=== PATIENT | male | born 1970 | race Hispanic/Latino ===

== ENCOUNTER 2021-08-08 18:19 | Emergency (ER) | payer MEDICAID ==
--- NOTE | 2021-08-08 18:45 | Emergency Department Report ---
ED General Adult HPI - General Stated complaint: LVAD ALARMING Time Seen by Provider: 08/08/21 18:41 Source: patient Mode of arrival: Ambulatory Limitations: No Limitations - History of Present Illness Initial comments: This patient presents to the emergency room stating that his LVAD has been beeping. Prior to my evaluation of the patient the issue was fixed by the nursing staff. The patient has an appointment with his cardiology to have further evaluation of of breath tomorrow. Patient states that he has a 1 PM appointment. He denies chest pain nausea vomiting or diaphoresis. -: Sudden Improves with: none Worsens with: none Treatments Prior to Arrival: none - Related Data Allergies Allergy/AdvReac Type Severity Reaction Status Date / Time No Known Allergies Allergy Verified 08/08/21 18:35 ED Review of Systems ROS: Stated complaint: LVAD ALARMING Other details as noted in HPI Comment: All other systems reviewed and negative Constitutional: no symptoms reported Eyes: denies: eye pain, eye discharge, vision change ENT: denies: ear pain, throat pain Respiratory: no symptoms reported. denies: cough, shortness of breath, wheezing Cardiovascular: denies: chest pain, palpitations Endocrine: no symptoms reported Gastrointestinal: denies: abdominal pain, nausea, vomiting Genitourinary: denies: urgency, dysuria Musculoskeletal: denies: back pain Skin: denies: rash, lesions Neurological: denies: headache, weakness Psychiatric: denies: anxiety, depression Hematological/Lymphatic: denies: easy bleeding ED Physical Exam - General General appearance: alert, in no apparent distress, obese (Morbid) - Head Head exam: Present: atraumatic, normocephalic - Eye Eye exam: Present: normal appearance, PERRL, EOMI - ENT ENT exam: Present: mucous membranes moist - Neck Neck exam: Present: normal inspection. Absent: tenderness - Respiratory Respiratory exam: Present: normal lung sounds bilaterally. Absent: respiratory distress, wheezes, rales, rhonchi - Cardiovascular Cardiovascular Exam: Present: regular rate - GI/Abdominal GI/Abdominal exam: Present: soft, normal bowel sounds - Rectal Rectal exam: Present: deferred - Back Exam Back exam: Present: normal inspection, full ROM. Absent: tenderness - Neurological Exam Neurological exam: Present: alert, oriented X3 - Psychiatric Psychiatric exam: Present: normal affect ED Course Vital Signs 08/08/21 18:36 Temperature 97.8 F Pulse Rate 66 Respiratory 16 Rate Blood Pressure 116/93 O2 Sat by Pulse 96 Oximetry ED Medical Decision Making - EKG Data -: EKG Interpreted by Me EKG shows normal: QRS complexes (Consistent with a paced rhythm at 70 bpm), ST-T waves (There is baseline artifact.) Rate: normal - Medical Decision Making The patient's vital signs were reviewed and noted to be within normal limits. He has remained stable. Patient plans to make his appointment at 1:00 tomorrow to have his LVAD reassess. I spoke with Jovita who is a LVAD coordinator at [facility] who requested that I can [id number] [phone], to do a ER to ER transfer. The patient's case was discussed with Dr. Marie and he agreed that if there was malfunction of the equipment then the patient needed to be transferred to telemetry for further observation. The patient believes that the issue with his LVAD is a wire malfunction and stated that the alarm goes off whenever he moves into certain positions. He stated that he was afraid to go home Critical care attestation.: If time is entered above; I have spent that time in minutes in the direct care of this critically ill patient, excluding procedure time. ED Disposition Clinical Impression: Malfunction of electrode lead of implantable cardioverter-defibrillator (ICD) Disposition: 02 SHORT TERM HOSPITAL Is pt being admited?: No Does the pt Need Aspirin: No Condition: Stable
[2021-08-08] MEDS ORDERED: KETOROLAC 30 MG/1 ML INJ IV ONE (22:45)
[2021-08-08] MEDS ORDERED: KETOROLAC 30 MG/1 ML INJ ONE (22:46)
[2021-08-09 02:34] VITALS: BP 119/97
--- NOTE | 2021-08-10 14:19 | Electrocardiograph Report ---
[facility] Test Date: 2021-08-08 Test Time: 20:03:38 Pat Name: FRANCES GOSS Department: Room: Gender: M Construction Supervisor: NIKOLAY : 1970 Requested By: KAREN BULLOCK Order Number: [id number] Reading MD: Marcos Martin Measurements Intervals [place] Rate: 70 P: 0 ND: 144 QRS: 249 QRSD: 200 T: 110 QT: 445 QTc: 480 Interpretive Statements Ventricular-paced rhythm Biventricular paced rhythm No previous ECG available for comparison Electronically Signed On 08-10-2021 14:19:07 EDT by Marcos Martin
== END 2021-08-09 00:02 | disposition short-term general hospital (02) ==
LOC: ED 18:19
DX: T82.118A Breakdown (mechanical) of other cardiac electronic device, initial encounter (principal); Y71.8 Miscellaneous cardiovascular devices associated with adverse incidents, not elsewhere classified; Y92.89 Other specified places as the place of occurrence of the external cause
CPT/HCPCS: 93005; 96374; 99284; J1885